=== PATIENT | male | born 1960 | race Caucasian/White ===

== ENCOUNTER 2022-02-14 22:55 | Emergency (ER) | payer OTHER ==
[2022-02-15 02:57] LABS: ESTIMATED GFR 63 mL/min (>60)
[2022-02-15] MEDS ORDERED: Sodium Chloride 0.9% 1,000 ML IV SCH (03:00)
[2022-02-15] MEDS ORDERED: cefTRIAXone 2 GM in Sodium Chloride 0.9% 50 ML IV ONE (03:25)
[2022-02-15] MEDS ORDERED: Bacitracin Oint 1 GM U/D Packet TOP ONE (03:37)
[2022-02-15 09:47] LABS: CORONAVIRUS COVID-19 NAA NEGATIVE (NEGATIVE)
== END 2022-02-15 11:03 ==
LOC: JP.ED 22:55
DX: M84.674A Pathological fracture in other disease, right foot, initial encounter for fracture (principal); M86.371 Chronic multifocal osteomyelitis, right ankle and foot; E11.9 Type 2 diabetes mellitus without complications; Z20.822 Contact with and (suspected) exposure to COVID-19; Z79.4 Long term (current) use of insulin; Z79.899 Other long term (current) drug therapy
CPT/HCPCS: 0241U; 36415; 73630-RT; 80053; 81001; 83605; 84145; 85025; 86140; 96365; 99284; 99284-25; J0696; J7030